=== PATIENT | male | born 1995 | race Caucasian/White ===

== ENCOUNTER 2017-09-27 22:12 | Emergency (ER) | payer OTHER ==
[2017-09-28 00:17] LABS: AMPHETAMINE QUAL UR NONE DETECTED (NEG <=1000)
[2017-09-28 00:20] VITALS: BP 111/72
== END 2017-09-28 00:20 | disposition home or self-care (01) ==
LOC: ED 22:12
PROVIDERS: Specialist
DX: R55 Syncope and collapse (principal); R42 Dizziness and giddiness; R11.0 Nausea; H53.8 Other visual disturbances
CPT/HCPCS: 82962